=== PATIENT | female | born 1970 | race African-American/Black ===

== ENCOUNTER 2017-11-16 22:47 | Emergency (ER) | payer OTHER ==
[2017-11-16 23:53] LABS: Absolute Lymphocytes (CBC) 1.6 K/uL (0.7-4.9); Absolute Monocytes 0.5 K/uL (0.1-1.3); Absolute Neutrophil 3.7 K/uL (1.8-8.0); Basophils % 0.7 % (0-1.3); Eosinophils % 1.4 % (0-4.4); Lymphocytes % 26.6 % (15.3-44.8); MCH 24.7 pg (27.0-35.0); MCV 76.7 fL (80-100); MPV 8.9 fL (7.6-11.3); Monocytes % 8.3 % (3.3-12.3); RBC Red Blood Cell Count 3.92 M/uL (3.86-4.86)
[2017-11-16 23:56] LABS: Protime INR 1.05
[2017-11-17 00:05] LABS: Potassium 3.4 mEq/L (3.6-5.0)
[2017-11-17 00:11] LABS: Albumin 3.8 g/dL (3.2-5.5); Bilirubin Direct 0.1 mg/dL (0-0.2); Bilirubin Total 0.5 mg/dL (0.3-1.2); Magnesium 1.7 mg/dL (1.8-2.5); Protein, Total 8.4 g/dL (6.0-8.3)
[2017-11-17 00:14] LABS: CKMB Creatine Kinase MB 1.2 ng/ml (0.3-4.0)
--- NOTE | 2017-11-17 01:25 | EDPHYS ---
Physician Documentation [facility] Name: Bita Hamm Age: 47 yrs Sex: Female : 1970 Arrival Date: 11/16/2017 Time: 22:52 Bed 6 Private MD: ED Physician Arik Cat HPI: 11/17 01:12 This 47 yrs old Black Female presents to ER via Ambulatory with complaints of Chest ps1 Pain, Breathing Difficulty. 01:12 The patient or guardian reports chest pain that is located primarily in the substernal ps1 area, right rib space rib 3-4. Onset: this morning. The pain does not radiate. Associated signs and symptoms: The patient has no apparent associated signs or symptoms. The chest pain is described as sharp. Modifying factors: the symptoms are aggravated by deep breath, movement. Severity of pain: At its worst the pain was moderate. had PNA in May. 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 Just finished menses. Pain is reproducible. . 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 - Social history:: Smoking status: Patient uses tobacco products, denies chronic smoking, but will smoke occasionally. ROS: 11/17 01:12 Constitutional: Negative for fever, chills, and weight loss, Eyes: Negative for injury, ps1 pain, redness, and discharge, ENT: Negative for injury, pain, and discharge, Neck: Negative for injury, pain, and swelling. Respiratory: Negative for shortness of breath, cough, wheezing, and pleuritic chest pain, Abdomen/GI: Negative for abdominal pain, nausea, vomiting, diarrhea, and constipation, Back: Negative for injury and pain, MS/Extremity: Negative for injury and deformity, Skin: Negative for injury, rash, and discoloration, Neuro: Negative for headache, weakness, numbness, tingling, and seizure. Cardiovascular: Positive for chest pain, with movement, of the anterior aspect of right upper chest. Exam: 01:12 Constitutional: This is a well developed, well nourished patient who is awake, alert, ps1 and in no acute distress. Head/Face: Normocephalic, atraumatic. Eyes: Pupils equal round and reactive to light, extra-ocular motions intact. Lids and lashes normal. Conjunctiva and sclera are non-icteric and not injected. Neck: Trachea midline, no thyromegaly or masses palpated, and no cervical lymphadenopathy. Supple, full range of motion without nuchal rigidity, or vertebral point tenderness. No Meningismus. 01:12 Cardiovascular: Regular rate and rhythm. No gallops, murmurs, or rubs. Normal PMI, no JVD. No pulse deficits. Respiratory: Lungs have equal breath sounds bilaterally, clear to auscultation and percussion. No rales, rhonchi or wheezes noted. No increased work of breathing, no retractions or nasal flaring. Abdomen/GI: Soft, non-tender, with normal bowel sounds. No distension or tympany. No guarding or rebound. No evidence of tenderness throughout. Skin: Warm, dry with normal turgor. Normal color with no rashes, no lesions, and no evidence of cellulitis. MS/ Extremity: Pulses equal, no cyanosis. Neurovascular intact. Full, normal range of motion. Neuro: Awake and alert, GCS 15, oriented to person, place, time, and situation. Cranial nerves II-XII grossly intact. Sensory grossly intact. 01:12 Chest/axilla: Inspection: normal, Palpation: tenderness, that is moderate, of the anterior aspect of right upper chest, that totally reproduces the patient's complaints. Vital Signs: 11/16 23:00 BP 163 / 115; Pulse 100; Resp 16; Temp 98.1(TE); Pulse Ox 98% on R/A; Weight 136.08 kg lk1 (R); Height 5 ft. 9 in. (175.26 cm) (R); Pain 8/10; 11/17 00:46 BP 160 / 90; Pulse 89; Resp 20; Pulse Ox 100% on R/A; tl2 01:50 BP 145 / 78; Pulse 89; Resp 16; Pulse Ox 98% ; bp 11/16 23:00 Body Mass Index 44.30 (136.08 kg, 175.26 cm) lk1 MDM: 11/16 23:18 Data reviewed: vital signs, nurses notes, EMS record, lab test result(s), EKG, ps1 radiologic studies. Test interpretation: by ED physician or midlevel provider: ECG. 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 ED course: pain improved has microcytic anemia. Likely iron deficiency. Will have patient follow up with internal medicine. . 11/17 01:25 Patient medically screened. ps1 11/16 23:10 Order name: Basic Metabolic Panel; Complete Time: 01:09 kb 11/16 23:10 Order name: BNP; Complete Time: : kb 11/16 23:10 Order name: CBC with Diff; Complete Time: 01:09 kb 11/16 23:10 Order name: Ckmb; Complete Time: : kb 11/16 23:10 Order name: CPK; Complete Time: : kb 11/16 23:10 Order name: LFT's; Complete Time: 01: kb 11/16 23:10 Order name: Magnesium; Complete Time: :09 kb 11/16 23:10 Order name: PT-INR; Complete Time: : kb 11/16 23:10 Order name: Ptt, Activated; Complete Time: 01:09 kb 11/16 23:10 Order name: Troponin (emerg Dept Use Only); Complete Time: 01:09 kb 11/16 23:10 Order name: XRAY Chest (1 view) kb 11/16 23:10 Order name: EKG; Complete Time: 23:11 kb 11/16 23:10 Order name: Cardiac monitoring; Complete Time: 23:34 kb 11/16 23:10 Order name: EKG - Nurse/Tech; Complete Time: 23:34 kb 11/16 23:10 Order name: IV Saline Lock; Complete Time: 23:34 kb 11/16 23:10 Order name: Labs collected and sent; Complete Time: 23:34 kb 11/16 23:10 Order name: O2 Per Protocol; Complete Time: 23:34 kb 11/16 23:10 Order name: O2 Sat Monitoring; Complete Time: 23:34 kb EC/01 23:18 Rate is 95 beats/min. Rhythm is regular. IN interval is normal. QT interval is normal. ps1 No Q waves. Clinical impression: Incomplete RBBB. NSR. Interpreted by me. Administered Medications: 11/17 01:36 Drug: TORadol 30 mg Route: IVP; Site: right antecubital; tl2 01:50 Follow up: Response: Pain is decreased bp Disposition: 11/17/17 01:25 Discharged to Home. Impression: Chest wall pain. . - Condition is Stable. - Discharge Instructions: Chest Wall Pain, [id number]. - Prescriptions for Anaprox DS 550 mg Oral Tablet - take 1 tablet by ORAL route every 12 hours As needed; 20 tablet. - Work release form, Medication Reconciliation Form, Thank You Letter, Antibiotic Education, Prescription Opioid Use form. - Follow up: Private Physician; When: 2 - 3 days; Reason: Recheck today's complaints, Continuance of care, Re-evaluation by your physician. Follow up: Emergency Department; When: As needed; Reason: Fever > 102 F, Trouble breathing, Worsening of condition. - Problem is new. - Symptoms have improved. Signatures: Dispatcher [employer] EDMS Leena Uribe, SUPERINTENDENT METER TESTS-C SUPERINTENDENT METER TESTS-Chiara Bailey RN RN lk1 Joelle Schmidt, SANDRA RN tl2 Benton Herrmann, SANDRA RN bp Arik Cat MD MD ps1
--- NOTE | 2017-11-17 01:25 | ER ---
Nurse's Notes [facility] Name: Bita Hamm Age: 47 yrs Sex: Female : 1970 Arrival Date: 11/16/2017 Time: 22:52 Bed 6 Private MD: Diagnosis: Chest wall pain. Presentation: 11/16 22:58 Presenting complaint: Patient states: "I am having chest pains and it hurts to breath. lk1 It happened earlier and passed and then when I went to work tonight, it started again.". Transition of care: patient was not received from another setting of care. Onset of symptoms was November 16, 2017 at 09:00. Initial Sepsis Screen: Does the patient meet any 2 criteria? No. Patient's initial sepsis screen is negative. Does the patient have a suspected source of infection? No. Patient's initial sepsis screen is negative. Care prior to arrival: None. 22:58 Method Of Arrival: Ambulatory lk1 22:58 Acuity: RONAK 3 lk1 Triage Assessment: 23:00 General: Appears in no apparent distress. Behavior is calm, cooperative, appropriate lk1 for age. Pain: Complains of pain in chest Pain currently is 8 out of 10 on a pain scale. Cardiovascular: Capillary refill is brisk Patient's skin is warm and dry. 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 - Social history:: Smoking status: Patient uses tobacco products, denies chronic smoking, but will smoke occasionally. Screenin:40 Abuse screen: Denies threats or abuse. Nutritional screening: No deficits noted. tl2 Tuberculosis screening: No symptoms or risk factors identified. Fall Risk None identified. Assessment: 23:40 General: Appears in no apparent distress. uncomfortable, Behavior is cooperative, tl2 appropriate for age, anxious. Pain: Complains of pain in chest Pain does not radiate. Pain currently is 7 out of 10 on a pain scale. Pain began this morning Is intermittent. Neuro: Level of Consciousness is awake, alert, obeys commands, Oriented to person, place, time, situation. Cardiovascular: Chest pain is described as mild, quality is sharp, is located in left anterior chest wall episodes are intermittent is aggravated by breathing. Respiratory: Reports shortness of breath Airway is patent Respiratory effort is even, unlabored, Respiratory pattern is regular, symmetrical, Breath sounds are clear bilaterally. GI: No signs and/or symptoms were reported involving the gastrointestinal system. : No signs and/or symptoms were reported regarding the genitourinary system. Derm: Skin is normal. 11/17 00:47 Reassessment: Patient appears in no apparent distress at this time. Awaiting on tl2 physician assessment. 01:51 Reassessment: PT D/C HOME AMBULATORY WITH FAMILY, DX WITH NONSPECIFIC CHEST PAIN. bp Vital Signs: 11/16 23:00 BP 163 / 115; Pulse 100; Resp 16; Temp 98.1(TE); Pulse Ox 98% on R/A; Weight 136.08 kg lk1 (R); Height 5 ft. 9 in. (175.26 cm) (R); Pain 8/10; 11/17 00:46 BP 160 / 90; Pulse 89; Resp 20; Pulse Ox 100% on R/A; tl2 01:50 BP 145 / 78; Pulse 89; Resp 16; Pulse Ox 98% ; bp 11/16 23:00 Body Mass Index 44.30 (136.08 kg, 175.26 cm) lk1 ED Course: 11/16 22:52 Patient arrived in ED. al2 22:59 Triage completed. lk1 23:02 Arm band placed on right wrist. lk1 23:04 Benton Herrmann, RN is Primary Nurse. bp 23:40 Patient has correct armband on for positive identification. Placed in gown. Bed in low tl2 position. Call light in reach. Side rails up X 1. Pulse ox on. NIBP on. 23:40 Inserted saline lock: 20 gauge in right antecubital area, using aseptic technique. tl2 Blood collected. Patient maintains SpO2 saturation greater than 95% on room air. 23:44 XRAY Chest (1 view) In Process Unspecified. EDMS 23:46 X-ray completed. Portable x-ray completed in exam room. Patient tolerated procedure kw well. 11/17 00:56 Arik Cat MD is Attending Physician. ps1 01:51 No provider procedures requiring assistance completed. IV discontinued, intact, bp bleeding controlled, No redness/swelling at site. Pressure dressing applied. Administered Medications: 01:36 Drug: TORadol 30 mg Route: IVP; Site: right antecubital; tl2 01:50 Follow up: Response: Pain is decreased bp Outcome: 01:25 Discharge ordered by . ps1 01:51 Discharged to home ambulatory, with family. bp 01:51 Condition: stable 01:51 Discharge instructions given to patient, Instructed on discharge instructions, follow up and referral plans. medication usage, Demonstrated understanding of instructions, follow-up care, medications, Prescriptions given X 1. 01:52 Patient left the ED. bp Signatures: Dispatcher [employer] EDMS Maribell Walden Leah, RN RN lk1 Joelle Schmidt RN RN tl2 Benton Herrmann, RN RN bp Arik Cat MD MD ps1 [place], Naheed bradley
[2017-11-17] MEDS ORDERED: KETOROLAC 30 MG/ML INJ ONE (01:31)
--- NOTE | 2017-11-17 08:18 | RAD REPORT ---
EXAM DESCRIPTION: RAD - Chest Single View - 11/16/2017 11:46 pm CLINICAL HISTORY: Chest pain. COMPARISON: None. FINDINGS: Portable technique limits examination quality. The lungs are grossly clear. The heart is upper limit of normal in size. No displaced fractures. IMPRESSION: No acute intrathoracic process suspected.
--- NOTE | 2017-11-17 10:20 | EKG ---
Test Date: 2017-11-16 Test Time: 23:18:53 Program Coordinator Executive Education: MAXIMO MEASUREMENT RESULTS: Intervals: Rate: 95 DE: 162 QRSD: 94 QT: 394 QTc: 495 [place]: P: 58 DE: 162 QRS: 16 T: 31 INTERPRETIVE STATEMENTS: Normal sinus rhythm Incomplete right bundle branch block Prolonged QT Abnormal ECG No previous ECG available for comparison Electronically Signed On 11-17-17 10:20:01 CDT by Jose Alfredo Azul
== END 2017-11-17 01:52 | disposition home or self-care (01) ==
LOC: ER 22:47
DX: R07.89 Other chest pain (principal)
CPT/HCPCS: 36415; 71045; 80048; 80076; 82550; 82553; 83735; 83880; 84484; 85025; 85610; 85730; 93005; 96374; 99284